=== PATIENT | female | born 1980 ===

== ENCOUNTER 2017-01-26 07:53 | Emergency (ER) | payer MEDICAID, OTHER ==
[2017-01-26 08:18] VITALS: TEMP 97.8; O2SAT 99; BMI 26.4
--- NOTE | 2017-01-26 09:17 | ED PDOC ---
Arrival/HPI - General Chief Complaint: Abnormal Skin Integrity Time Seen by Provider: 01/26/17 08:14 Historian: Patient - History of Present Illness Narrative History of Present Illness (Text): 01/26/17 09:14 36yo female present with complaint of laceration to her lateral 2nd finger this morning. states she sustained the laceration while cleaning a glass cup and it broke and cut her finger. She notes she is up to date with her TD booster. She notes FROM of her finger and NVI. Denies any other complaint. Past Medical History - Provider Review Nursing Documentation Reviewed: Yes - Psychiatric Hx Substance Use: No - Surgical History Hx Section: Yes - Anesthesia Hx Anesthesia: Yes Hx Anesthesia Reactions: No Family/Social History - Physician Review Nursing Documentation Reviewed: Yes Family/Social History: Unknown Family HX Smoking Status: Never Smoked Hx Alcohol Use: Yes Frequency of alcohol use: Socially Hx Substance Use: No Allergies/Home Meds Allergies/Adverse Reactions: Allergies No Known Allergies Allergy (Verified 01/26/17 08:26) Review of Systems - Physician Review All systems were reviewed & negative as marked: Yes - Review of Systems Constitutional: Normal Eyes: Normal ENT: Normal Respiratory: Normal Cardiovascular: Normal Gastrointestinal: Normal Genitourinary Female: Normal Musculoskeletal: Normal Skin: Laceration (Right 2nd finger) Neurological: Normal Endocrine: Normal Hemo/Lymphatic: Normal Psychiatric: Normal Physical Exam Vital Signs Reviewed: Yes Vital Signs Temp Pulse Resp BP Pulse Ox 01/26/17 09:15 88 17 127/80 99 01/26/17 08:18 97.8 F 90 18 128/76 99 Temperature: Afebrile Blood Pressure: Normal Pulse: Regular Respiratory Rate: Normal Appearance: Positive for: Well-Appearing, Non-Toxic, Comfortable Pain Distress: None Mental Status: Positive for: Alert and Oriented X 3 - Systems Exam Head: Present: Atraumatic, Normocephalic Pupils: Present: PERRL Extroacular Muscles: Present: EOMI Conjunctiva: Present: Normal Mouth: Present: Moist Mucous Membranes Neck: Present: Normal Range of Motion Respiratory/Chest: Present: Clear to Auscultation, Good Air Exchange. No: Respiratory Distress, Accessory Muscle Use Cardiovascular: Present: Regular Rate and Rhythm, Normal S1, S2. No: Murmurs Abdomen: Present: Normal Bowel Sounds. No: Tenderness, Distention, Peritoneal Signs Back: Present: Normal Inspection Upper Extremity: Present: Normal Inspection. No: Cyanosis, Edema Lower Extremity: Present: Normal Inspection. No: Edema Neurological: Present: GCS=15, CN II-XII Intact, Speech Normal Skin: Present: Warm, Dry, Normal Color, Laceration (3.0cm linear laceration on lateral base of right 2nd finger). No: Rashes Psychiatric: Present: Alert, Oriented x 3, Normal Insight, Normal Concentration Procedure: Wound Repair - Consent Obtained Consent obtained: Verbal - Performed by Performed by: Mid-level Provider - Indications Indication(s):: Laceration - Location Finger:: Right, Index Shape:: Linear Dimensions Length cm: 3.0 - Anesthetic Technique Local/Regional Anesthetic:: Lidocaine 1% (7.5) - Debris Debris:: None - Irrigated Irrigated with ml of normal saline: 80 - Complexity Complexity:: Intermediate (2 layer) - Muscle repiar layer closed with Muscle repair layer closed with:: # (9), Size (5), Type (Proline), Technique ( interrupted), Wound well approximated, Abx ointment applied, Dressing applied, Tetanus up to date - Patient tolerated procedure Patient Tolerated Procedure:: Well Disposition/Present on Arrival - Present on Arrival Any Indicators Present on Arrival: No History of DVT/PE: No History of Uncontrolled Diabetes: No Urinary Catheter: No History of Decub. Ulcer: No History Surgical Site Infection Following: None - Disposition Have Diagnosis and Disposition been Completed?: Yes Diagnosis: Finger laceration Disposition: HOME/ ROUTINE Disposition Time: 09:40 Patient Plan: Discharge Patient Problems: Current Active Problems Problem Status Onset Finger laceration Acute Condition: STABLE Discharge Instructions (ExitCare): Care For Your Stitches (ED), Laceration (ED) Additional Instructions: Keep wound clean and dry Follow up with your Doctor in 7 to 10days for suture removal Return to ED for any fever, redness, purulent discharge. Prescriptions: Cephalexin [Keflex] 500 mg PO TID #21 capsule Referrals: Chayo Torres MD [Primary Care Provider] - Follow up with primary
[2017-01-26 09:30] VITALS: BP 127/80; PULSE 88; RESP 17
== END 2017-01-26 10:03 | disposition home or self-care (01) ==
LOC: ED 07:53
DX: S61.210A Laceration without foreign body of right index finger without damage to nail, initial encounter (principal); W25.XXXA Contact with sharp glass, initial encounter; Y93.89 Activity, other specified; Y92.89 Other specified places as the place of occurrence of the external cause

== ENCOUNTER 2017-06-16 08:40 | Emergency (ER) | payer MEDICAID ==
[2017-06-16 08:40] VITALS: BMI 26.4
[2017-06-16 08:55] VITALS: TEMP 98.1
[2017-06-16] MEDS ORDERED: Sodium Chloride 0.9% 1,000 ML IV STA (09:33)
--- NOTE | 2017-06-16 09:37 | ED PDOC ---
Arrival/HPI - General Chief Complaint: Back Pain Time Seen by Provider: 06/16/17 09:32 Historian: Patient - History of Present Illness Narrative History of Present Illness (Text): 06/16/17 09:34 36 y/o female, no significant pmh, nkda, c/o rt. flank pain on and off x 2 weeks. Pt. stated that the pain is sharp, not sure if this is related to her work, on and off pain, no chest pain or shortness of breath, no night sweat, no rash, no urinary symptoms, no palpitation, stated that she feels distended, no shoulder pain or pain after eating fatty food, no other medical or psychological complaints. Past Medical History - Provider Review Nursing Documentation Reviewed: Yes - Infectious Disease Hx of Infectious Diseases: None - Psychiatric Hx Substance Use: No Other/Comment: insomnia - Surgical History Hx Section: Yes (x1) - Anesthesia Hx Anesthesia: Yes Hx Anesthesia Reactions: No Family/Social History - Physician Review Nursing Documentation Reviewed: Yes Family/Social History: Unknown Family HX Smoking Status: Never Smoked Hx Alcohol Use: Yes Hx Substance Use: No Allergies/Home Meds Allergies/Adverse Reactions: Allergies No Known Allergies Allergy (Verified 06/16/17 08:55) Review of Systems - Review of Systems Constitutional: absent: Fatigue, Fevers Eyes: absent: Vision Changes ENT: absent: Hearing Changes Respiratory: absent: SOB, Cough Cardiovascular: absent: Chest Pain Gastrointestinal: Abdominal Pain. absent: Nausea, Vomiting Musculoskeletal: Back Pain, Myalgias. absent: Arthralgias, Neck Pain, Joint Swelling Skin: absent: Rash, Pruritis, Skin Lesions Neurological: absent: Headache, Dizziness Physical Exam Vital Signs Reviewed: Yes Vital Signs Temp Pulse Resp BP Pulse Ox 06/16/17 11:08 95 H 18 115/71 98 06/16/17 08:51 98.1 F 100 H 16 118/74 100 Temperature: Afebrile Blood Pressure: Normal Pulse: Regular Respiratory Rate: Normal Appearance: Positive for: Well-Appearing, Non-Toxic, Comfortable Pain Distress: Moderate Mental Status: Positive for: Alert and Oriented X 3 - Systems Exam Head: Present: Atraumatic, Normocephalic Pupils: Present: PERRL Extroacular Muscles: Present: EOMI Conjunctiva: Present: Normal Mouth: Present: Moist Mucous Membranes Neck: Present: Normal Range of Motion Respiratory/Chest: Present: Clear to Auscultation, Good Air Exchange. No: Respiratory Distress, Accessory Muscle Use, Wheezes, Decreased Breath Sounds, Rales, Retracting, Rhonchi, Tachypneic, Tender to Palpation Cardiovascular: Present: Regular Rate and Rhythm, Normal S1, S2. No: Murmurs Abdomen: Present: Tenderness (+rt cva tenderness. ), Normal Bowel Sounds. No: Distention, Peritoneal Signs, Rebound, Guarding Back: Present: Normal Inspection Upper Extremity: Present: Normal Inspection. No: Cyanosis, Edema Lower Extremity: Present: Normal Inspection. No: Edema Neurological: Present: GCS=15, Speech Normal, Motor Func Grossly Intact, Gait Normal, Memory Normal Skin: Present: Warm, Dry, Normal Color. No: Rashes Psychiatric: Present: Alert, Oriented x 3, Normal Insight, Normal Concentration Medical Decision Making ED Course and Treatment: 06/16/17 09:40 -labs/ua -CT abdomen and pelvis -Chest xray -EKG -IVF/toradol -Observe and reassess 06/16/17 12:03 -EKG: SR @ 90 BPM with 1st degree AV block, no ST elevation or depression. -Chest xray show no active disease -CT abdomen and pelvis show: No evidence of nephrolithiasis or hydronephrosis. The kidneys enhance symmetrically without evidence of mass lesion or dilated collecting system. No evidence of cholecystitis pancreatitis or appendicitis. -Labs are non-significant -UA show no UTI -Pt. feels better, will discharge home. -Discharge home with naproxen, flexeril, bed rest, follow up with your own pmd and orthopedic/urologist/physical therapist within 2 days, return to the ER for any new or worsening signs or symptoms. - Lab Interpretations Lab Results: 06/16/17 09:29 06/16/17 09:29 Lab Results 06/16/17 10:56: Urine Color Yellow, Urine Appearance Turbid, Urine pH 6.5, Ur Specific Basile 1.010, Urine Protein Negative, Urine Glucose (UA) Negative, Urine Ketones Negative, Urine Blood Large H, Urine Nitrate Negative, Urine Bilirubin Negative, Urine Urobilinogen 0.2, Ur Leukocyte Esterase Negative, Urine RBC Tntc, Urine WBC Negative, Ur Epithelial Cells 0 - 2 06/16/17 09:29: Sodium 141, Potassium 4.1, Chloride 109 H, Carbon Dioxide 24, Anion Gap 12, BUN 14, Creatinine 0.7, Est GFR ( Amer) > 60, Est GFR (Non- Af Amer) > 60, Random Glucose 108, Calcium 9.2, Magnesium 1.9, Total Bilirubin 0.5, AST 30, ALT 33, Alkaline Phosphatase 80, Total Protein 7.7, Albumin 4.3, Globulin 3.4, Albumin/Globulin Ratio 1.3, Lipase 93 06/16/17 09:29: WBC 9.3, RBC 4.12, Hgb 12.1, Hct 36.2, MCV 87.9, MCH 29.4, MCHC 33.4, RDW 12.5, Plt Count 305, MPV 9.5, Gran % 78.2 H, Lymph % (Auto) 17.1 L, [place] % (Auto) 4.1, Eos % (Auto) 0.5 L, Baso % (Auto) 0.1, Gran # 7.29 H, Lymph # 1.6, [place] # 0.4, Eos # 0.1, Baso # 0.01 I have reviewed the lab results: Yes Interpretation: No clinic. lab abnormalty - RAD Interpretation Radiology Orders: 06/16/17 09:33 ABD & PELVIS IV CONTRAST ONLY [CT] Stat CHEST PORTABLE [RAD] Stat PROCEDURE: CT Abdomen and Pelvis with and without intravenous contrast HISTORY: rt. flank pain x 2 weeks COMPARISON: None. TECHNIQUE: Axial images of the abdomen were obtained in the pre contrast, portal venous and delayed phases of enhancement. Coronal and sagittal reformats were generated. Contrast dose: 100 mL Omnipaque 350 Radiation dose: Total exam DLP = 343.5 mGy-cm. This CT exam was performed using one or more of the following dose reduction techniques: Automated exposure control, adjustment of the mA and/or kV according to patient size, and/or use of iterative reconstruction technique. FINDINGS: LOWER THORAX: Unremarkable. LIVER: Unremarkable. No gross lesion or ductal dilatation. GALLBLADDER AND BILE DUCTS: Unremarkable. PANCREAS: Unremarkable. No gross lesion or ductal dilatation. SPLEEN: Unremarkable. ADRENALS: Unremarkable. No mass. KIDNEYS AND URETERS: No evidence of nephrolithiasis. . No hydronephrosis. No solid mass. The ureters are not dilated. 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 . No aortic aneurysm. BOWEL: Unremarkable. No obstruction. No gross mural thickening. APPENDIX: Normal appendix. PERITONEUM: Unremarkable. No free fluid. No free air. LYMPH NODES: Unremarkable. No enlarged lymph nodes. BLADDER: Unremarkable. REPRODUCTIVE: Unremarkable. BONES: No acute fracture. OTHER FINDINGS: None. IMPRESSION: No evidence of nephrolithiasis or hydronephrosis. The kidneys enhance symmetrically without evidence of mass lesion or dilated collecting system. No evidence of cholecystitis pancreatitis or appendicitis. Chest xray: Dairy Products Maker: Radiologist - EKG Interpretation EKG Interpretation (Text): 06/16/17 09:42 -EKG: SR @ 90 BPM with 1st degree AV block, no ST elevation or depression. Interpreted by ED Physician: Yes Type: 12 lead EKG - Medication Orders Current Medication Orders: Discontinued Medications Sodium Chloride (Sodium Chloride 0.9%) 1,000 mls @ 999 mls/hr IV .Q1H1M STA Stop: 06/16/17 10:33 Last Admin: 06/16/17 09:38 Dose: 999 mls/hr eMAR Start Stop Document 06/16/17 09:38 SE (Rec: 06/16/17 09:39 SE [id number]) Intravenous Solution Start Date 06/16/17 Start Time 09:39 Ketorolac Tromethamine (Toradol) 30 mg IVP STAT STA Stop: 06/16/17 09:34 Last Admin: 06/16/17 09:39 Dose: 30 mg MAR Pain Assessment Document 06/16/17 09:39 SE (Rec: 06/16/17 09:39 [id number]) Pain Reassessment Is this a pain reassessment? No Sleep Is patient sleeping during reassessment? No Presence of Pain Presence of Pain Yes Pain Scale Used Pain Scale Used Numeric Location Left, Right or Bilateral Right Pain Location Body Site Back IVP Administration Document 06/16/17 09:39 SE (Rec: 06/16/17 09:39 SE [id number]) Charges for Administration # of IVP Administrations 1 - PA / POTATO PANCAKE FRIER / Resident Statement MD/DO has reviewed & agrees with the documentation as recorded. Disposition/Present on Arrival - Present on Arrival Any Indicators Present on Arrival: No History of DVT/PE: No History of Uncontrolled Diabetes: No Urinary Catheter: No History of Decub. Ulcer: No History Surgical Site Infection Following: None - Disposition Have Diagnosis and Disposition been Completed?: Yes Diagnosis: Flank pain Disposition: HOME/ ROUTINE Disposition Time: 12:12 Patient Plan: Discharge Condition: IMPROVED Additional Instructions: -Discharge home with naproxen, flexeril, bed rest, follow up with your own pmd and orthopedic/urologist/physical therapist within 2 days, return to the ER for any new or worsening signs or symptoms. Prescriptions: Cyclobenzaprine [Cyclobenzaprine HCl] 10 mg PO TID PRN #21 tab PRN Reason: Other Naproxen 500 mg PO BID PRN #22 tab PRN Reason: Other Referrals: PCP,NO [Primary Care Provider] - Follow up with primary Jimmy Marshall MD [Staff Provider] - Follow up with primary Tarik Bonner III, MD [Medical Doctor] - Follow up with primary [facility] [place] - Follow up with primary Forms: WORK NOTE
[2017-06-16 09:49] LABS: BASO # 0.01 K/mm3 (0.0-2.0); BASO % 0.1 % (0.0-3.0); EOS # 0.1 (0.0-0.7); EOS % 0.5 % (1.5-5.0); GRAN # 7.29 (1.4-6.5); GRAN % 78.2 % (50.0-68.0); HEMATOCRIT 36.2 % (36.0-48.0); LYMPH # 1.6 (1.2-3.4); LYMPH % 17.1 % (22.0-35.0); MEAN CELL VOLUME 87.9 fl (80.0-105.0); MEAN CORPUSCULAR HEMOGLOBIN 29.4 pg (25.0-35.0); MEAN CORPUSCULAR HGB CONC 33.4 g/dl (31.0-37.0); MEAN PLATELET VOLUME 9.5 fl (7.0-11.0); MONO # 0.4 (0.1-0.6); MONO % 4.1 % (1.0-6.0); RED CELL DISTRIBUTION WIDTH 12.5 % (11.5-14.5); WHITE BLOOD COUNT 9.3 10^3/ul (4.5-11.0)
[2017-06-16 09:52] LABS: ALB/GLOB RATIO 1.3 (1.1-1.8); ALKALINE PHOSPHATASE 80 U/L (38-126); ALT/SGPT 33 U/L (7-56); AST/SGOT 30 U/L (14-36); BILIRUBIN,TOTAL 0.5 mg/dL (0.2-1.3); BLOOD UREA NITROGEN 14 mg/dL (7-21); CALCIUM 9.2 mg/dL (8.4-10.5); CARBON DIOXIDE 24 mmol/L (21-33); CHLORIDE 109 mmol/L (98-107); GFR AFRICAN-AMERICAN > 60; GLUCOSE,RANDOM 108 mg/dL (70-110); LIPASE 93 U/L (23-300); MAGNESIUM 1.9 mg/dL (1.7-2.2); POTASSIUM 4.1 mmol/L (3.6-5.0); SODIUM 141 mmol/L (132-148); TOTAL PROTEIN 7.7 g/dL (5.8-8.3)
[2017-06-16] MEDS ORDERED: Iohexol 350 MG/100 ML VIAL ONE (10:20)
[2017-06-16 11:02] LABS: PH,URINE 6.5 (4.7-8.0); URINE BILIRUBIN NEGATIVE (NEGATIVE); URINE BLOOD LARGE (NEGATIVE); URINE GLUCOSE (UA) NEGATIVE (NEGATIVE); URINE KETONE NEGATIVE (NEGATIVE); URINE LEUKOCYTE ESTERASE NEGATIVE Leu/uL (NEGATIVE); URINE PROTEIN NEGATIVE mg/dL (<30 mg/dL); URINE UROBILINOGEN 0.2 E.U./dL (<1 E.U./dL)
[2017-06-16 11:03] LABS: URINE APPEARANCE TURBID (CLEAR); URINE COLOR YELLOW (YELLOW)
[2017-06-16 11:08] VITALS: BP 115/71; PULSE 95; RESP 18; O2SAT 98
[2017-06-16 11:11] LABS: URINE EPITHELIAL CELLS 0 - 2 /hpf (0-5); URINE RBC TNTC /hpf (0-2); URINE WBC NEGATIVE /hpf (0-6)
--- NOTE | 2017-06-16 11:28 | CT ---
PROCEDURE: CT Abdomen and Pelvis with and without intravenous contrast HISTORY: rt. flank pain x 2 weeks COMPARISON: None. TECHNIQUE: Axial images of the abdomen were obtained in the pre contrast, portal venous and delayed phases of enhancement. Coronal and sagittal reformats were generated. Contrast dose: 100 mL Omnipaque 350 Radiation dose: Total exam DLP = 343.5 mGy-cm. This CT exam was performed using one or more of the following dose reduction techniques: Automated exposure control, adjustment of the mA and/or kV according to patient size, and/or use of iterative reconstruction technique. FINDINGS: LOWER THORAX: Unremarkable. LIVER: Unremarkable. No gross lesion or ductal dilatation. GALLBLADDER AND BILE DUCTS: Unremarkable. PANCREAS: Unremarkable. No gross lesion or ductal dilatation. SPLEEN: Unremarkable. ADRENALS: Unremarkable. No mass. KIDNEYS AND URETERS: No evidence of nephrolithiasis. . No hydronephrosis. No solid mass. The ureters are not dilated. 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 . No aortic aneurysm. BOWEL: Unremarkable. No obstruction. No gross mural thickening. APPENDIX: Normal appendix. PERITONEUM: Unremarkable. No free fluid. No free air. LYMPH NODES: Unremarkable. No enlarged lymph nodes. BLADDER: Unremarkable. REPRODUCTIVE: Unremarkable. BONES: No acute fracture. OTHER FINDINGS: None. IMPRESSION: No evidence of nephrolithiasis or hydronephrosis. The kidneys enhance symmetrically without evidence of mass lesion or dilated collecting system. No evidence of cholecystitis pancreatitis or appendicitis.
--- NOTE | 2017-06-16 14:02 | RAD ---
HISTORY: medical clearance COMPARISON: None. FINDINGS: LUNGS: No active pulmonary disease. PLEURA: No significant pleural effusion identified, no pneumothorax apparent. CARDIOVASCULAR: Normal. OSSEOUS STRUCTURES: No significant abnormalities. VISUALIZED UPPER ABDOMEN: Normal. OTHER FINDINGS: None. IMPRESSION: No active disease. Concordant results with the preliminary interpretation rendered by the emergency department physician procedure.
--- NOTE | 2017-06-16 23:07 | CARD ---
APPROVED REPORT EKG Measurement Heart [id number] <Conclusion> Sinus rhythm with 1st degree AV block Otherwise normal ECG
== END 2017-06-16 12:24 | disposition home or self-care (01) ==
LOC: ED 08:40
DX: R10.9 Unspecified abdominal pain (principal)
CPT/HCPCS: 71010; 74177; 80053; 81001; 83690; 83735; 85025; 93005; 96374; 99284; J1885; J7040; Q9967

== ENCOUNTER 2018-05-07 13:23 | Emergency (ER) | payer MEDICAID ==
[2018-05-07 13:23] VITALS: BMI 26.4
[2018-05-07 13:49] VITALS: O2SAT 100
[2018-05-07] MEDS ORDERED: Oxycodone/Acetaminophen 5/325 mg Tab PO STA (14:07)
--- NOTE | 2018-05-07 14:10 | ED PDOC ---
Arrival/HPI - General Chief Complaint: Back Pain Time Seen by Provider: 05/07/18 14:05 Historian: Patient - History of Present Illness Narrative History of Present Illness (Text): 05/07/18 14:09 37 y/o female, no significant pmh, nkda, c/o rt. lower back pain s/p fall in a gym about 3 weeks ago. pt. stated that she accidentally fall on the lower back, been having pain, no fever or chills, no urinary or bowel incontinence or r etention, no night sweat, no dizziness, no chest pain or shortness of breath, no rash, no abdominal pain, no nausea or vomiting, no other medical or psychological complaints. Past Medical History - Provider Review Nursing Documentation Reviewed: Yes - Infectious Disease Hx of Infectious Diseases: None - Reproductive Menopause: No - Psychiatric Hx Substance Use: No Other/Comment: insomnia - Surgical History Hx Section: Yes (x1) - Anesthesia Hx Anesthesia: Yes Hx Anesthesia Reactions: No Family/Social History - Physician Review Nursing Documentation Reviewed: Yes Family/Social History: Unknown Family HX Smoking Status: Never Smoked Hx Alcohol Use: Yes Hx Substance Use: No Allergies/Home Meds Allergies/Adverse Reactions: Allergies No Known Allergies Allergy (Verified 06/16/17 08:55) Review of Systems - Review of Systems Constitutional: absent: Fatigue, Fevers Eyes: absent: Vision Changes ENT: absent: Hearing Changes Respiratory: absent: SOB, Cough Cardiovascular: absent: Chest Pain Gastrointestinal: absent: Abdominal Pain, Nausea, Vomiting Musculoskeletal: Back Pain, Myalgias. absent: Arthralgias, Neck Pain, Joint Swelling Skin: absent: Rash, Pruritis Neurological: absent: Headache, Dizziness Psychiatric: absent: Anxiety, Depression, Suicidal Ideation Physical Exam Vital Signs Temp Pulse Resp BP Pulse Ox 05/07/18 13:46 99.6 F 98 H 20 116/67 100 Pain Distress: Severe - Systems Exam Head: Present: Atraumatic, Normocephalic Pupils: Present: PERRL Extroacular Muscles: Present: EOMI Conjunctiva: Present: Normal Mouth: Present: Moist Mucous Membranes Neck: Present: Normal Range of Motion Respiratory/Chest: Present: Clear to Auscultation, Good Air Exchange. No: Respiratory Distress, Accessory Muscle Use Cardiovascular: Present: Regular Rate and Rhythm, Normal S1, S2. No: Murmurs Abdomen: No: Tenderness, Distention, Peritoneal Signs Back: Present: Normal Inspection, Other (LS spine: +ttp on the rt. paraspinal muscle region, no midline tenderness or step off, no rash, FROM without limitation, sensation intact, motor 5/5, no saddling gait. ). No: CVA Tenderness, Midline Tenderness Upper Extremity: Present: Normal Inspection. No: Cyanosis, Edema Lower Extremity: Present: Normal Inspection. No: Edema Neurological: Present: GCS=15, CN II-XII Intact, Speech Normal Skin: Present: Warm, Dry, Normal Color. No: Rashes Psychiatric: Present: Alert, Oriented x 3, Normal Insight, Normal Concentration Medical Decision Making ED Course and Treatment: 05/07/18 14:08 -UA -LS spine xray -percocet -Observe and reassess 05/07/18 15:53 -Urine hcg is negative -UA show mild UTI -LS spine xray show no fracture or subluxation -Pain resolved, feeling much better, will discharge home. -Discharge home with naproxen, flexeril, macrobid, bed rest, follow up with your own pmd and orthopedic within 2 days, return to the ER for any new or worsening signs or symptoms. - RAD Interpretation Radiology Orders: 05/07/18 14:06 LS SPINE WITH OBL > 18 YRS OLD [RAD] Stat PROCEDURE: Radiographs of the Lumbar Spine. HISTORY: fall, rt. lower back pain COMPARISON: No prior. FINDINGS: BONES: Normal alignment. No listhesis. No fracture. DISC SPACES: Unremarkable. OTHER FINDINGS: None. IMPRESSION: Unremarkable radiographs of the lumbar spine. Signal Fitter: Radiologist - PA / OINT[employer] MILL TENDER / Resident Statement MD/DO has reviewed & agrees with the documentation as recorded. Disposition/Present on Arrival - Present on Arrival Any Indicators Present on Arrival: No History of DVT/PE: No History of Uncontrolled Diabetes: No Urinary Catheter: No History of Decub. Ulcer: No History Surgical Site Infection Following: None - Disposition Have Diagnosis and Disposition been Completed?: Yes Diagnosis: Fall, Low back pain, UTI (urinary tract infection) Disposition: HOME/ ROUTINE Disposition Time: 15:54 Patient Plan: Discharge Condition: IMPROVED Additional Instructions: -Discharge home with naproxen, flexeril, macrobid, bed rest, follow up with your own pmd and orthopedic within 2 days, return to the ER for any new or worsening signs or symptoms. Prescriptions: Cyclobenzaprine [Cyclobenzaprine HCl] 10 mg PO TID PRN #21 tab PRN Reason: Other Naproxen 500 mg PO BID PRN #20 tablet PRN Reason: Other Nitrofurantoin Macrocrystals [Macrobid] 100 mg PO BID #14 cap Referrals: Chayo Torres MD [Primary Care Provider] - Follow up with primary Franc Nazario MD [Staff Provider] - Follow up with primary Forms: [employer] (Faroese), WORK NOTE
[2018-05-07 15:00] VITALS: BP 124/76; PULSE 84; RESP 17; TEMP 98.4
--- NOTE | 2018-05-07 15:33 | RAD ---
Date of service: 05/07/2018 PROCEDURE: Radiographs of the Lumbar Spine. HISTORY: fall, rt. lower back pain COMPARISON: No prior. FINDINGS: BONES: Normal alignment. No listhesis. No fracture. DISC SPACES: Unremarkable. OTHER FINDINGS: None. IMPRESSION: Unremarkable radiographs of the lumbar spine.
[2018-05-07 15:42] LABS: URINE BILIRUBIN NEGATIVE (NEGATIVE); URINE BLOOD LARGE (NEGATIVE); URINE GLUCOSE (UA) NEGATIVE (NEGATIVE); URINE LEUKOCYTE ESTERASE TRACE Leu/uL (NEGATIVE); URINE PROTEIN TRACE mg/dL (<30 mg/dL); URINE UROBILINOGEN 0.2 E.U./dL (<1 E.U./dL)
[2018-05-07 15:44] LABS: URINE APPEARANCE CLEAR (CLEAR); URINE COLOR YELLOW (YELLOW)
[2018-05-07 15:45] LABS: URINE RBC 25 - 30 /hpf (0-2)
== END 2018-05-07 16:00 | disposition home or self-care (01) ==
LOC: ED 13:23
DX: M54.5 Low back pain (principal); N39.0 Urinary tract infection, site not specified

== ENCOUNTER 2018-05-09 23:14 | Emergency (ER) | payer MEDICAID ==
[2018-05-09 23:54] VITALS: BMI 28.3
[2018-05-09 23:56] VITALS: RESP 18; TEMP 98
--- NOTE | 2018-05-10 00:25 | ED PDOC ---
Arrival/HPI - General Historian: Patient - History of Present Illness Narrative History of Present Illness (Text): 05/10/18 00:25 Brenda Strickland is a 37 year old female who presents to the Emergency department complaining of a laceration to the left head. Patient states approximately 1 hours prior to arrival she was mopping when she slipped and fell, hitting her head against the corner of a bed. Patient denies any loss of consciousness. Patient does report a slight headache. Patient reports her last TDAP was 2 years ago. Patient denies any neck pain, back pain, blurred vision, dizziness, weakness, or any other complaints. Symptom Onset: Sudden Symptom Course: Unchanged Activities at Onset: Light Context: Home <Kamla Segovia - Last Filed: 05/10/18 02:16> <Willard Barnett - Last Filed: 05/10/18 05:59> - General Chief Complaint: Abnormal Skin Integrity Time Seen by Provider: 05/09/18 23:24 Past Medical History - Provider Review Nursing Documentation Reviewed: Yes - Infectious Disease Hx of Infectious Diseases: None - Psychiatric Hx Substance Use: No Other/Comment: insomnia - Surgical History Hx Section: Yes (x1) - Anesthesia Hx Anesthesia: Yes Hx Anesthesia Reactions: No Hx Malignant Hyperthermia: No <Kamla Segovia - Last Filed: 05/10/18 02:16> Family/Social History - Physician Review Nursing Documentation Reviewed: Yes Family/Social History: Unknown Family HX Smoking Status: Never Smoked Hx Alcohol Use: Yes Frequency of alcohol use: Socially Hx Substance Use: No <Kamla Segovia - Last Filed: 05/10/18 02:16> Allergies/Home Meds <Kamla Segovia - Last Filed: 05/10/18 02:16> <Willard Barnett - Last Filed: 05/10/18 05:59> Allergies/Adverse Reactions: Allergies No Known Allergies Allergy (Verified 05/09/18 23:56) Home Medications: Home Meds Medication Instructions Recorded Confirmed RX: No Known Home Med 05/09/18 05/09/18 Review of Systems - Physician Review All systems were reviewed & negative as marked: Yes - Review of Systems Constitutional: Normal. absent: Fevers Eyes: Normal ENT: Normal Respiratory: Normal. absent: SOB, Cough Cardiovascular: Normal. absent: Chest Pain Gastrointestinal: Normal. absent: Abdominal Pain, Diarrhea, Nausea, Vomiting Genitourinary Female: Normal. absent: Dysuria, Frequency, Hematuria, Urine Output Changes Musculoskeletal: Normal. absent: Back Pain, Neck Pain Skin: Laceration. absent: Rash Neurological: Headache. absent: Dizziness Endocrine: Normal Hemo/Lymphatic: Normal Psychiatric: Normal <Kamla Segovia - Last Filed: 05/10/18 02:16> Physical Exam Vital Signs Reviewed: Yes Vital Signs Temp Pulse Resp BP Pulse Ox 05/09/18 23:53 98 F 114 H 18 127/74 99 Temperature: Afebrile Blood Pressure: Normal Pulse: Regular Respiratory Rate: Normal Appearance: Positive for: Well-Appearing, Non-Toxic, Comfortable Pain Distress: None Mental Status: Positive for: Alert and Oriented X 3 - Systems Exam Head: Present: Normocephalic, Tenderness, Swelling, Laceration (3cm superficial laceration to left parietal scalp, no active bleeding, no step-offs, no crepitus). No: Ecchymosis, Abrasion Pupils: Present: PERRL Extroacular Muscles: Present: EOMI Conjunctiva: Present: Normal Mouth: Present: Moist Mucous Membranes Neck: Present: Normal Range of Motion. No: Meningeal Signs, MIDLINE TENDERNESS, Paraspinal Tenderness Respiratory/Chest: Present: Clear to Auscultation, Good Air Exchange. No: Respiratory Distress, Accessory Muscle Use Cardiovascular: Present: Regular Rate and Rhythm, Normal S1, S2. No: Murmurs Abdomen: No: Tenderness, Distention, Peritoneal Signs Back: Present: Paraspinal Tenderness Upper Extremity: Present: Normal Inspection. No: Cyanosis, Edema Lower Extremity: Present: Normal Inspection. No: Edema Neurological: Present: GCS=15, Speech Normal, Motor Func Grossly Intact, Normal Sensory Function, Gait Normal Skin: Present: Warm, Dry, Normal Color Psychiatric: Present: Alert, Oriented x 3 <Kamla Segovia - Last Filed: 05/10/18 02:16> Vital Signs Temp Pulse Resp BP Pulse Ox 05/10/18 01:55 75 18 101/51 L 98 05/09/18 23:53 98 F 114 H 18 127/74 99 <Willard Barnett - Last Filed: 05/10/18 05:59> Medical Decision Making ED Course and Treatment: 05/10/18 00:25 Impression: 37 year old female presents s/p slip and fall with left parietal scalp laceration and slight headache. Plan: -- CT Head: Normal size of the ventricles and extra-axial spaces for the patient's age. Normal white matter tracts of the supratentorial brain. Normal basal ganglia and thalami. Normal brainstem. Normal cerebellum. There is no demonstrated extra-axial, intraparenchymal, or intraventricular hemorrhage. There are no findings of an acute ischemic infarction. Normal calvarium. There is no demonstrated fracture. Mild left frontal subgaleal soft tissue hematoma. Normal visualized paranasal sinuses. IMPRESSION: Normal unenhanced CT scan of the brain. Mild left frontal subgaleal soft tissue hematoma -- Reassess and disposition Progress Notes: 05/10/18 01:40 Laceration repair: 3 florin placed Per patient tetanus is up-to-date Patient is nontoxic well-appearing in no distress vital signs are stable. I discussed head CT results in depth with the patient. Advised follow-up with the primary care physician within the next 2 days advised immediate return if symptoms worsen persist or if new concerning symptoms develop Patient verbalizes understanding of discharge instructions and need for immediate followup. all aspects of this case were discussed the attending of record. Impression: Head injury, laceration scalp Tylenol every 4 hours as needed for pain Keep the wound clean and dry, apply bacitracin twice daily Follow-up the primary care physician within the next 2 days Return in 10 days for staple removal Return immediately if signs of infection develop: High fevers, increasing pain, increasing redness, increasing swelling, purulent discharge return if any other concerning symptoms develop Reassessment Condition: Re-examined, Improved - RAD Interpretation Radiology Orders: 05/10/18 00:14 HEAD W/O CONTRAST [CT] Stat <Kamla Segovia - Last Filed: 05/10/18 02:16> - RAD Interpretation Radiology Orders: 05/10/18 00:14 HEAD W/O CONTRAST [CT] Stat <Willard Barnett - Last Filed: 05/10/18 05:59> Procedure: Wound Repair - Procedure Procedure: Wound Repair: laceration, scalp - Performed by Performed by: Mid-level Provider - Indications Indication(s):: Laceration - Location Location:: Scalp Shape:: Linear Dimensions Length cm: 3cm Depth:: Epidermis - Anesthetic Technique Local/Regional Anesthetic:: Other (NONE) - Debris Debris:: None - Irrigated Irrigated with ml of normal saline: copious amounts of NS using high pressure irrigation - Complexity Complexity:: Simple (one layer) - Wound repair method Sutures:: # (3 florin placed) - Complications Complications: none - Patient tolerated procedure Patient Tolerated Procedure:: Well <Kamla Segovia - Last Filed: 05/10/18 02:16> - Scribe Statement The provider has reviewed the documentation as recorded by the Jasbir De La Rosa Provider Scribe Attestation: All medical record entries made by the Scribe were at my direction and personally dictated by me. I have reviewed the chart and agree that the record accurately reflects my personal performance of the history, physical exam, medical decision making, and the department course for this patient. I have also personally directed, reviewed, and agree with the discharge instructions and disposition. <Kamla Segovia - Last Filed: 05/10/18 02:16> - PA / POSSUM TRAPPER / Resident Statement MD/ has reviewed & agrees with the documentation as recorded. <Wlilard Barnett - Last Filed: 05/10/18 05:59> Disposition/Present on Arrival - Present on Arrival Any Indicators Present on Arrival: No History of DVT/PE: No History of Uncontrolled Diabetes: No Urinary Catheter: No History of Decub. Ulcer: No History Surgical Site Infection Following: None - Disposition Have Diagnosis and Disposition been Completed?: Yes Disposition Time: 01:15 Patient Plan: Discharge <Kamla Segovia - Last Filed: 05/10/18 02:16> - Present on Arrival Any Indicators Present on Arrival: No - Disposition Have Diagnosis and Disposition been Completed?: Yes <Willard Barnett - Last Filed: 05/10/18 05:59> - Disposition Diagnosis: Head injury, Scalp laceration Disposition: HOME/ ROUTINE Condition: GOOD Discharge Instructions (ExitCare): Laceration Repair, Laceration Repair With Morris (DC), Minor Head Injury (DC) Additional Instructions: Tylenol every 4 hours as needed for pain Keep the wound clean and dry, apply bacitracin twice daily Follow-up the primary care physician within the next 2 days Return in 10 days for staple removal Return immediately if signs of infection develop: High fevers, increasing pain, increasing redness, increasing swelling, purulent discharge return if any other concerning symptoms develop Referrals: Ruslan Hlolis MD [Staff Provider] - Follow up with primary Norma Tomas MD [Medical Doctor] - Follow up with primary [employer] [facility] [Outside] - Follow up with primary Forms: [email or web address] (Sudanese), WORK NOTE
[2018-05-10 01:55] VITALS: BP 101/51; PULSE 75; O2SAT 98
--- NOTE | 2018-05-10 07:54 | CT ---
Date of service: 05/10/2018 PROCEDURE: CT HEAD WITHOUT CONTRAST. HISTORY: headache/head injury COMPARISON: None available. TECHNIQUE: Axial computed tomography images were obtained through the head/brain without intravenous contrast. Radiation dose: Total exam DLP = 755 mGy-cm. This CT exam was performed using one or more of the following dose reduction techniques: Automated exposure control, adjustment of the mA and/or kV according to patient size, and/or use of iterative reconstruction technique. FINDINGS: HEMORRHAGE: No intracranial hemorrhage. BRAIN: No mass effect or edema. No atrophy or chronic microvascular ischemic changes. VENTRICLES: Unremarkable. No hydrocephalus. CALVARIUM: Unremarkable. PARANASAL SINUSES: Unremarkable as visualized. No significant inflammatory changes. MASTOID AIR CELLS: Unremarkable as visualized. No inflammatory changes. OTHER FINDINGS: The report concurs with the preliminary [facility] report IMPRESSION: No acute intracranial findings
== END 2018-05-10 02:03 | disposition home or self-care (01) ==
LOC: ED 23:14
DX: S01.01XA Laceration without foreign body of scalp, initial encounter (principal); W01.190A Fall on same level from slipping, tripping and stumbling with subsequent striking against furniture, initial encounter; Y93.E5 Activity, floor mopping and cleaning; Y92.002 Bathroom of unspecified non-institutional (private) residence as the place of occurrence of the external cause

== ENCOUNTER 2018-05-24 09:28 | Emergency (ER) | payer MEDICAID ==
[2018-05-24 09:28] VITALS: BMI 28.3
[2018-05-24 09:52] VITALS: PULSE 80; O2SAT 100
[2018-05-24 10:54] LABS: URINE BILIRUBIN NEGATIVE (NEGATIVE); URINE BLOOD MODERATE (NEGATIVE); URINE GLUCOSE (UA) NEGATIVE (NEGATIVE); URINE LEUKOCYTE ESTERASE TRACE Leu/uL (NEGATIVE); URINE PROTEIN NEGATIVE mg/dL (<30 mg/dL); URINE UROBILINOGEN 0.2 E.U./dL (<1 E.U./dL)
[2018-05-24 11:04] LABS: URINE APPEARANCE CLEAR (CLEAR); URINE COLOR YELLOW (YELLOW)
[2018-05-24 11:11] LABS: URINE BACTERIA MANY (NEG); URINE RBC 20 - 25 /hpf (0-2)
--- NOTE | 2018-05-24 11:33 | ED PDOC ---
Arrival/HPI - General Chief Complaint: Suture/Staple Removal Time Seen by Provider: 05/24/18 09:38 Historian: Patient - History of Present Illness Narrative History of Present Illness (Text): 05/24/18 11:22 37yo female with no pmhx who present to ED for staple removal from her scalp and right sided lower back pain x months. States she was seen here a month ago for similar pain s/p trauma, and after imaging was told it was negative. States she continues to have the pain. She notes that the staple was placed here. Denies fever, chills, urinary symptoms, hematuria, nausea, vomiting, trauma, fecal/urinary incontinence, focal weakness, saddle anesthesia. Past Medical History - Provider Review Nursing Documentation Reviewed: Yes - Infectious Disease Hx of Infectious Diseases: None - Reproductive Menopause: No - Psychiatric Hx Substance Use: No Other/Comment: insomnia - Surgical History Hx Section: Yes (x1) - Anesthesia Hx Anesthesia: Yes Hx Anesthesia Reactions: No Hx Malignant Hyperthermia: No Family/Social History - Physician Review Nursing Documentation Reviewed: Yes Family/Social History: Unknown Family HX Smoking Status: Never Smoked Hx Alcohol Use: Yes Hx Substance Use: No Allergies/Home Meds Allergies/Adverse Reactions: Allergies No Known Allergies Allergy (Verified 05/09/18 23:56) Review of Systems - Physician Review All systems were reviewed & negative as marked: Yes - Review of Systems Constitutional: Normal Eyes: Normal ENT: Normal Respiratory: Normal Cardiovascular: Normal Gastrointestinal: Normal Genitourinary Female: Normal Musculoskeletal: Back Pain Skin: Other (Staple removal) Neurological: Normal Endocrine: Normal Hemo/Lymphatic: Normal Psychiatric: Normal Physical Exam Vital Signs Reviewed: Yes Vital Signs Temp Pulse Resp BP Pulse Ox 05/24/18 10:43 98.4 F 80 18 118/66 100 05/24/18 09:48 98.6 F 80 18 116/68 100 Temperature: Afebrile Blood Pressure: Normal Pulse: Regular Respiratory Rate: Normal Appearance: Positive for: Well-Appearing, Non-Toxic, Comfortable Pain Distress: None Mental Status: Positive for: Alert and Oriented X 3 - Systems Exam Head: Present: Atraumatic, Normocephalic Pupils: Present: PERRL Extroacular Muscles: Present: EOMI Conjunctiva: Present: Normal Mouth: Present: Moist Mucous Membranes Neck: Present: Normal Range of Motion Respiratory/Chest: Present: Clear to Auscultation, Good Air Exchange. No: Respiratory Distress, Accessory Muscle Use Cardiovascular: Present: Regular Rate and Rhythm, Normal S1, S2. No: Murmurs Abdomen: No: Tenderness, Distention, Peritoneal Signs Back: Present: CVA Tenderness, Paraspinal Tenderness (right side). No: Midline Tenderness, Pain with Leg Raise Upper Extremity: Present: Normal Inspection. No: Cyanosis, Edema Lower Extremity: Present: Normal Inspection. No: Edema Neurological: Present: GCS=15, CN II-XII Intact, Speech Normal Skin: Present: Warm, Dry, Normal Color, Other (3staples noted to left sided parietal scalp. No erytehma. No purulent discharge. No sign of infection.). No: Rashes Psychiatric: Present: Alert, Oriented x 3, Normal Insight, Normal Concentration Medical Decision Making ED Course and Treatment: 05/24/18 13:12 Pt presented for stated history. She was hemodynamically stable and ambulatory with no neurological deficit. 3sdtaples was removed from her parietal scalp and edges appear approximated with no sign of infection Pt report back pain and she had moderate blood in her UA. States she is not having her period. Abdominal/pelvic CT was ordered to r/o renal colic Abdominal pelvic CT IMPRESSION: No acute abdominal or pelvic abnormality. Specifically, no evidence for nephrolithiasis, hydronephrosis or obstructive uropathy. No CT evidence for acute appendicitis. Fecalization of small bowel contents likely related to chronic stasis. No bowel obstruction. Result was DW the pt and she will be Dc home with [facility] and referred to a Urologist for furhter workup on the hemturia and her PMD - Lab Interpretations Lab Results: Lab Results 05/24/18 10:25: Urine Color Yellow, Urine Appearance Clear, Urine pH 6.0, Ur Specific [place] 1.015, Urine Protein Negative, Urine Glucose (UA) Negative, Urine Ketones Negative, Urine Blood Moderate H, Urine Nitrate Negative, Urine Bilirubin Negative, Urine Urobilinogen 0.2, Ur Leukocyte Esterase Trace H, Urine RBC 20 - 25, Urine WBC 5 - 10, Ur Epithelial Cells 6 - 8, Urine Bacteria Many - RAD Interpretation Radiology Orders: 05/24/18 11:19 ABD & PELVIS W/O PO OR IV CONT [CT] Stat - Medication Orders Current Medication Orders: Discontinued Medications Ketorolac Tromethamine (Toradol) 60 mg IM STAT STA Stop: 05/24/18 10:26 Last Admin: 05/24/18 10:50 Dose: 60 mg MAR Pain Assessment Document 05/24/18 10:50 PENCILLER (Rec: 05/24/18 10:52 PENCILLER [id number]) Pain Reassessment Is this a pain reassessment? Yes Sleep Is patient sleeping during reassessment? No Presence of Pain Presence of Pain Yes Pain Scale Used Protocol: PSCALES Pain Scale Used Numeric Location Pain Location Body Site Back Description Description Intermittent Intensity of Pain at present 7 IM Administration Charges Document 05/24/18 10:50 PENCILLER (Rec: 05/24/18 10:52 PENCILLER [id number]) Injection Site MAR Injection Site Left Deltoid Charges for Administration # of IM Administrations 1 Disposition/Present on Arrival - Present on Arrival Any Indicators Present on Arrival: No History of DVT/PE: No History of Uncontrolled Diabetes: No Urinary Catheter: No History of Decub. Ulcer: No History Surgical Site Infection Following: None - Disposition Have Diagnosis and Disposition been Completed?: Yes Diagnosis: Removal of staple, Back pain Disposition: HOME/ ROUTINE Disposition Time: 13:15 Patient Plan: Discharge Patient Problems: Current Active Problems Problem Status Onset Removal of staple Acute Condition: STABLE Discharge Instructions (ExitCare): Staple Removal, Low Back Pain (DC) Additional Instructions: Follow up with a Urologist/PMD Return to ED for any new or worsening symptoms Prescriptions: Naproxen [Naprosyn] 500 mg PO BID #20 tablet Referrals: Paola Marshall MD [Staff Provider] - Follow up with primary Forms: [employer] (Slovak)
--- NOTE | 2018-05-24 13:15 | CT ---
Date of service: 05/24/2018 PROCEDURE: CT Abdomen and Pelvis without intravenous contrast HISTORY: Right back pain COMPARISON: None. TECHNIQUE: CT scan of the abdomen and pelvis was performed without administration of intravenous contrast. Oral contrast was not administered. Coronal and sagittal reformatted images were obtained. . Radiation dose: Total exam DLP = 336.84 mGy-cm. This CT exam was performed using one or more of the following dose reduction techniques: Automated exposure control, adjustment of the mA and/or kV according to patient size, and/or use of iterative reconstruction technique. FINDINGS: LOWER THORAX: The visualized lungs are clear. LIVER: Normal in size. No intrahepatic ductal dilatation. GALLBLADDER AND BILE DUCTS: No calcified gallstones. No biliary dilatation PANCREAS: Normal in size. No ductal dilatation. SPLEEN: Normal in size. ADRENALS: Normal in size. No discrete nodule. KIDNEYS AND URETERS: Normal in size without nephrolithiasis. No hydronephrosis. VASCULATURE: No aortic aneurysm. No aortic atherosclerotic calcification or mural plaque present. BOWEL: The small bowel loops are normal in caliber. There is fecalization of small bowel contents. The colon is normal in size. No bowel dilatation or wall thickening. No bowel obstruction. APPENDIX: Normal appendix. PERITONEUM: No free fluid. No free air. LYMPH NODES: No enlarged lymph nodes. BLADDER: Well distended and grossly normal in appearance. REPRODUCTIVE: The uterus is normal in size BONES: No acute fracture. OTHER FINDINGS: None. IMPRESSION: No acute abdominal or pelvic abnormality. Specifically, no evidence for nephrolithiasis, hydronephrosis or obstructive uropathy. No CT evidence for acute appendicitis. Fecalization of small bowel contents likely related to chronic stasis. No bowel obstruction.
[2018-05-24 13:29] VITALS: BP 120/78; RESP 17; TEMP 97.6
== END 2018-05-24 13:28 | disposition home or self-care (01) ==
LOC: ED 09:28
DX: Z48.02 Encounter for removal of sutures (principal); M54.5 Low back pain
CPT/HCPCS: 74176; 81001; 87086; 96372; 99283; J1885